=== PATIENT | male | born 1960 | race Caucasian/White ===

== ENCOUNTER 2023-12-07 12:39 | Emergency (ER) | payer BC ==
[2023-12-07 13:07] LABS: Bilirubin Negative (Negative); Blood, Urine Large (Negative); Glucose, Urine (Dipstick) Negative (Negative); Ketone, Urine Negative (Negative); Leukocyte Moderate (Negative); Nitrite Positive (Negative); Protein, Urine (Dipstick) 100 mg/dL (Neg-Trace); Specific Gravity, Urine 1.025 (1.005-1.030); Urobilinogen 0.2 mg/dL (Less than 2); pH, Urine 6.5 (5.0-9.0)
[2023-12-07 13:12] LABS: Clarity Slightly Cloudy (Clear)
[2023-12-07 13:13] LABS: Bacteria/HPF 1+ HPF (None Seen); CAUTI Indications for Culture Pelvic or flank pain; RBC/HPF Greater than 50 HPF (0-3); Squamous Epithelial 0-3 HPF (0-3); WBC/HPF Greater Than 50 HPF (0-3)
[2023-12-07 13:14] LABS: Urine Culture Reflex Yes Yes
[2023-12-07] MEDS ORDERED: Lidocaine 1% PF 5 ML VIAL ONE (13:24)
[2023-12-07] MEDS ORDERED: cefTRIAXone (ROCEPHIN) 1 GM VIAL ONE (13:25)
== END 2023-12-07 13:45 | disposition home or self-care (01) ==
LOC: MADERS 12:39
DX: N39.0 Urinary tract infection, site not specified (principal); F17.220 Nicotine dependence, chewing tobacco, uncomplicated; I10 Essential (primary) hypertension; Z79.899 Other long term (current) drug therapy
CPT/HCPCS: 81001; 87077; 87086; 87186; 96372; 99283; J0696